=== PATIENT | female | born 1960 | race Caucasian/White ===

== ENCOUNTER 2016-07-26 06:47 | Day surgery (SDC) | payer OTHER ==
[~2016-07-26] VITALS: Ht 167.6 cm; Wt 60.0 kg
[~2016-07-26 06:47] MED LIST: ADVAIR 100/501 DISK IH; FISH OIL 1,0001 EAC7 PO; HAIR, SKIN & N1 EAC1 PO; MENOPAUSE SUPPO20 MG PO; OCUVITE TABLET1 EACH PO; PERCOCET 5/31 TABLET PO; PREMARIN VAGI42.5 GM VG; PROVENTIL HFA6.7 GM IH; VITAMIN D31000 UNIT PO
== END 2016-07-26 09:45 | disposition home or self-care (01) ==
LOC: CATH 06:47
DX: C25.9 Malignant neoplasm of pancreas, unspecified (principal); I87.8 Other specified disorders of veins; Z82.49 Family history of ischemic heart disease and other diseases of the circulatory system; Z83.3 Family history of diabetes mellitus; Z87.891 Personal history of nicotine dependence
CPT/HCPCS: C1752; C1894; J0690; J1200; J1644; J2250; J3010; S0020

== ENCOUNTER → 2017-06-14 | Outpatient (CLI) | payer OTHER ==
[~2017-06-14] MED LIST changes: +GABAPENTIN100 MG PO; +PROAIR HFA8.5 GM IH
== END | disposition home or self-care (01) ==
LOC: AMB 06-07 08:30
DX: Z45.2 Encounter for adjustment and management of vascular access device (principal); I87.8 Other specified disorders of veins; Z92.21 Personal history of antineoplastic chemotherapy